=== PATIENT | male | born 1980 | race Caucasian/White ===

== ENCOUNTER → 2024-09-10 14:39 | Outpatient (BNVA) | payer BC, SELFPAY | PROVIDERS: PCP Family Medicine; Visit Provider Urology | DX: Z30.2 Encounter for sterilization (principal); F41.8 Other specified anxiety disorders | CPT/HCPCS: 55250; J2003 ==

== ENCOUNTER → 2024-09-14 10:55 | Outpatient (BNVA) | payer BC, SELFPAY | PROVIDERS: PCP Family Medicine; Visit Provider Urology ==

== ENCOUNTER 2024-09-15 15:02 | Day surgery (SDC) | payer BC, SELFPAY ==
[2024-09-15] VITALS (9 sets, daily range): BP systolic 153–175; BP diastolic 91–102; PULSE 75–85; RESP 15–18; TEMP 36.4–36.7; O2SAT 97–100; BMI 31.6
--- OUTSIDE RECORDS SUMMARY | 2024-09-15 10:13 | XMS_ITS | Clinical Summary ---
Author Organization 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 Name Role Phone Unavailable Primary Care Provider Unavailabl e Allergies No known active allergies Social History Tobacco Use Types Packs/Day Years Used Date Smoking Tobacco: Never Assessed Sex and Gender Information Value Date Recorded Sex Assigned at Not on file Gender Identity Not on file Sexual Orientation Not on file Last Filed Vital Signs Vital Sign Reading Time Taken Comments Blood Pressure 139/92 08/10/2020 9:23 PM EST Pulse 122 08/10/2020 9:23 PM EST Temperature 35.8 ??C (96.5 ??F) 08/10/2020 8:07 PM ES T Respiratory Rate 16 08/10/2020 9:23 PM EST Oxygen Saturation 96% 08/10/2020 9:23 PM EST Inhaled Oxygen Concentration - - Weight - - Height - - Body Mass Index - - Plan of Treatment Health Maintenance Due Date Last Done Comments Hepatitis C Virus Screening 1981 HIV Screening 1994 DTaP/Tdap/Td Vaccines (1 - Tdap) 2000 Hepatitis B Vaccines (1 of 3 - 19+ 3-dose series) 2000 Influenza Vaccine 02/26/2024 COVID-19 Vaccine ( - 2023-2 5 season) 2024 HPV Vaccines Aged Out No longer eligi ble based on patient's age to complete this topic Pneumococcal Vaccine: Pediat michel (0-5 Years) and At-Risk Patients (6 to 49 Years) Aged Out No longer eligible b ased on patient's age to complete this topic Insurance Payer Benefit Plan / Group Subscriber ID Effective Dates Phone Address [facility] [id number] 2019-Present [facility] [place] [id number]
--- NOTE | 2024-09-15 16:20 | P.HPSUR_ITS ---
Pre-Procedural Eval Section A - 24 Hr Update-Section A only Date of Service: 09/15/24 The patient is an INPATIENT: No Changes since office visit: No Cold of Flu in the past 2 weeks, No New Medical Problems, No Changes in Medication and No Patient answered all questions The patient has been examined within 24 hours of the surgical procedure. The History & Physical has been completed within 30 days and I have reviewed it.: No Section B - Complete if H&P > 30 days Chief Complaint: Nontraumatic hematoma of soft tissue Details of Present Illness: significant bilateral hematoma after vasectomy. Here for scrotal exploration and drainage Relevant Family History (Specify if Yes): No Relevant Social History: None Present Medications: see Short Stay Collaborative assessment Medical History: No relevant PMH History of Previous Operations: No relevant previous surgery Allergies: Allergies Allergy/AdvReac Type Severity Reaction Status Date / Time No Known Allergies Allergy Verified 09/15/24 16:06 Review of Systems Sugical H&P ROS: Negative: Constitution, Cardiovascular, Respiratory, Neurological, Psychiatric, Hem-Onc, Allergic/Immunologic, Gastrointestinal, G enitourinary, Musculoskeletal, Integumentary, Endocrine and Eyes/Ears/Nose/Throat Exam Surgical H&P Exam: Normal: HEENT, Normal: Heart, Normal: Lungs, Normal: Extremities, Normal: Abdomen, Normal: Skin and Normal: Neurological Plan Diagnosis/Plan: Unchanged I have reviewed the history and physical and performed a pertinent physical examination on my patient. No changes have occurred unless specified. Time Spent With Patient Time: Total time managing care of this patient today ____ minutes.
--- NOTE | 2024-09-15 16:33 | HO.ANESPROP2 ---
HPI - Anesthesia Eval Consult details Narrative: for drainage scrotal hematoma PMFSH Active Problems Active Problems: All Active Problems Anxiety about health (Acute) Encounter for vasectomy counseling (Acute) Screening for prostate cancer (Acute) Adult general medical exam (Acute) Laboratory exam ordered as part of routine general medical examination (Acute) Elevated blood pressure reading (Acute) Family planning (Acute) Family History Family history of problems with anesthesia: No Surgical History Surgical History (Updated 09/15/24 @ 16:24 by Sho Nevarez RN) H/O vasectomy History of facial surgery History of Problems with Anesthesia: No Social History Social History Housing: House Are you a primary child care centre director to a significant other at home: No Do you presently have visiting nurse or other home services: No Patient Tobacco Use Status: Former Tobacco user Tobacco use type: Cigarette Years Smoked: 10 e-Cigarette/Vaping Use: Never Used Second Hand Smoke Exposure: No Use of substances other than those prescribed or required for medical reasons: No Have you been hit, kicked, punched, or otherwise hurt by someone within the past year? If so, by whom?: No Are you DNR?: No Advance Directives: No Advance Directives Information Provided: No Advance Directives on File: No Recently lost weight without trying: No How much weight loss: Not applicable Eating poorly because of decreased appetite: No Nutrition screen score: 0 Poor oral hygiene: Yes (missing teeth throughout) service: No Current occupational status: employed Current occupation: [employer] Current occupational exposures/hazards: Yes Cognitive needs: No Hearing needs: No Vision needs: No Meds Allergies Allergy/AdvReac Type Severity Reaction Status Date / Time No Known Allergies Allergy Verified 09/15/24 16:06 Active Medications: Current Medications Cefazolin Sodium/Dextrose (Ancef) 2 gm in 50 mls @ 100 mls/hr IV PREOP ONE Stop: 09/15/24 16:49 Exam Height,Weight and Vital Signs: Height 6 ft 1 in Weight 108.7 kg Last Vital Signs Temp 98.1 F 09/15/24 15:15 Pulse 78 09/15/24 15:15 Resp 16 09/15/24 15:15 BP 153/102 H 09/15/24 15:15 Pulse Ox 100 09/15/24 15:15 O2 Del Method Room Air 09/15/24 15:15 Airway Mallampati Class: II TM Dist: >3cm Neck ROM: Full Loose/Missing/Broken Teeth: No Heart: ok Lungs: ok Assessment and Plan Assessment Anesthesia Assessment: Anesthesia Plan Discussed and Chart Reviewed Final Anesthetic Review Family History of Problems with Anesthesia: No History of Problems with Anesthesia: No NPO: Yes ASA Class: II Final Preanesthetic Review: No Changes in Pt Med Stat, Meds/Allgs Chart Reviewed, Consent Obtained/Reviewed and Anes Risks/Benef Reviewed Patient Risk: Low Procedure Risk: Low Anesthetic Plan Anesthetic Plan: GA and Agree w/ Assess. and Plan Disposition: Standard PACU
[2024-09-15] MEDS: ceFAZolin Sodium/Dextrose,Iso 2 GM/50 ML PIGGYBACK IV (16:49)
[2024-09-15] MEDS: fentaNYL citrate/PF 100 MCG/2 ML VIAL 50 MCG IVPUSH ×2 (18:05→18:10)
--- NOTE | 2024-09-15 18:16 | W.PM.OPN ---
Operative Note Operative Note Date of Service: 09/15/24 Narrative: PreOperative Diagnosis: Left testicular hematoma Post Operative Diagnosis: Left testicular hematoma Procedure: Scrotal exploration with drainage of left testicular hematoma Surgeon: Dr Dioni Patiño Anesthesia: Genital Indications for procedure: Delayed bruising following vasectomy. Significant left hematoma within tunica vaginalis Procedure: After informed consent was verified the patient was brought to the operating room and placed in a supine position. Anesthesia was administered per protocol. The patient was prepped and draped in a sterile fashion. Safety pause time-out was performed. Antibiotics being given. Patient had been positioned in a supine position. He was prepped and draped in sterile fashion. Scrotum was markedly swollen on the left side. Right side was normal. Incision made in midline of scrotum. Dissection performed into left hemiscrotum. Dissection taken down to the level of the tunic. Tissue was edematous from inflammation. Sac opened and hematoma drained. Hematoma was of jelly like consistency. This was fully removed. Area was examined for bleeding. Edges were fulgurated. Decision was made to partially resect the tunica sac. This is to try to stop further accumulation. Edges were cauterized. These were oversewn with 3-0 Vicryl. Due to degree of swelling a decision was made to leave a drain. Small drain was placed through dependent incision in the scrotum. Scrotum was closed. Two layers were made with 3-0 Vicryl suture. Skin was reapproximated using interrupted 3-0 and 4-0 chromic sutures. Pathology: Drains: Linette
[2024-09-15] MEDS: oxyCODONE HCl Immed Release 5 MG TABLET PO (18:27)
== END 2024-09-15 18:55 | disposition home or self-care (01) ==
PROVIDERS: PCP Family Medicine; Visit Provider Urology
PROC: (CPT 55110; principal; 2024-09-15 16:50)
DX: N99.840 Postprocedural hematoma of a genitourinary system organ or structure following a genitourinary system procedure (principal); M79.81 Nontraumatic hematoma of soft tissue; Z98.52 Vasectomy status
CPT/HCPCS: 54700; 88302; J0690; J2003; J2704; J2795; J3010

== ENCOUNTER → 2024-09-15 15:02 | Outpatient (BNV) | payer BC, SELFPAY | PROVIDERS: PCP Family Medicine; Visit Provider Urology | DX: N99.820 Postprocedural hemorrhage of a genitourinary system organ or structure following a genitourinary system procedure (principal) | CPT/HCPCS: 55110 ==

== ENCOUNTER → 2024-09-17 12:47 | Outpatient (BNVA) | payer BC, SELFPAY | PROVIDERS: PCP Family Medicine; Visit Provider Urology ==

== ENCOUNTER 2024-12-07 14:48 | Outpatient (AMB) | payer BC, SELFPAY ==
--- NOTE | 2024-12-07 15:00 | A.OFFVIS_ITS ---
Intake Visit Reasons: Vasectomy Followup Intake Note: Patient is present for VASECTOMY F/U Urology Medication:NONE Antibiotic Allergy:NONE Blood Thinner:NONE Telecommunication Systems Designer Required: No Allergies No Known Allergies [No Known Allergies*] Allergy (Verified 12/07/24 15:02) HPI Comments Details: Constantino is a 44 year old male who is here for evaluation for vasectomy. He has a 3 month old son. Vasectomy procedure was discussed at length with the patient. He was informed that vasectomy is a safe, permanent, and effective form of control but there are risks involved. It may involve risk of hematoma, procedure failure which is rare, sperm granuloma which may cause mild pain, and congestion which may cause sense of pressure and generally resolves after several weeks. 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 Postop vasectomy 1-2 sperm seen on high-power evaluation Satisfied technical criteria for success Repeat in 4 weeks just to ensure clear Sperm were not moving although sample had been done within 1 hour [facility] Surgical History (Updated 10/01/24 @ 12:37 by Carin Acuna) H/O vasectomy History of facial surgery Social History (System 10/01/24 @ 12:37 by Carin Acuna) Housing: House Are you a primary rn wound care to a significant other at home: No Do you presently have visiting nurse or other home services: No Patient Tobacco Use Status: Former Tobacco user Tobacco use type: Cigarette Years Smoked: 10 e-Cigarette/Vaping Use: Never Used Second Hand Smoke Exposure: No service: No Current occupational status: employed Current occupation: [employer] Current occupational exposures/hazards: Yes Cognitive needs: No Hearing needs: No Vision needs: No Review of Systems Const Denies chills and Denies fever(s) Card Reports no additional complaints and Denies syncope Resp Denies cough GI Denies abdominal pain and Denies heartburn Reports as per HPI and Denies change in libido Neuro Denies syncope Psych Denies change in libido Endo Denies change in libido Physical Exam Const General: cooperative, healthy appearing, comfortable and no acute distress Orientation/consciousness: patient oriented x3 HEENT Face and sinus: Yes normal facial exam Mouth: moist mucous membranes Neck Neck: Yes normal visual inspection, Yes full ROM and Yes trachea midline Chest Chest palpation & inspection: normal inspection of the chest Resp Effort & Inspection: normal respiratory effort, able to speak in complete sentences and no respiratory distress GI Inspection: Yes normal to inspection Back/Spine/Pelvis Cervical Spine: normal cervical lordosis Thoracic/Lumbar Spine: thoracic and lumbar spine normal to inspection Skin General skin exam: no rashes or lesions noted Neuro General: patient oriented x3, gait normal, tone normal and moves all extremities Extrem General: Yes normal to inspection and Yes capillary refill normal Assessment & Plan Assessment & Plan (1) Anxiety about health: Code(s): R45.89 - Other symptoms and signs involving emotional state Category: Medical Plan Recheck semen sample 4 weeks Patient Instructions: This note is constructed using voice recognition software. While every effort has been made to ensure accuracy superintendent meter tests errors may have been included. Imaging studies, laboratory and physical exam results were discussed and reviewed in detail. No major barriers to patient understanding were identified. An opportunity to ask questions regarding the treatment plan was provided. All questions were answered. The patient expressed understanding and agreement with the above treatment plan. The patient is aware they should contact our office by phone for worsening of their current condition or the appearance of new urologic symptoms. Compliance is encouraged with any medications and followup testing that is ordered. It is a privilege to participate in the urologic care of your patient. If you have any questions or concerns regarding treatment for the above conditions, or other urologic issues, please do not hesitate to contact me. The office telephone contact is [phone]. Sincerely, Dr Dioni Patiño MD, [facility] - Urology Compassionate Specialist Care for the Genitourinary System Coding Level of Care Code Est Pt Level 3 (91296) Diagnoses Anxiety about health R45.89
--- OUTSIDE RECORDS SUMMARY | 2024-12-07 15:54 | XMS_ITS | Clinical Summary ---
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 Name Role Phone Unavailable Primary Care Provider Unavailabl e Allergies No known active allergies Social History Tobacco Use Types Packs/Day Years Used Date Smoking Tobacco: Never Assessed Sex and Gender Information Value Date Recorded Sex Assigned at Not on file Legal Sex Male 6:04 PM EST Gender Identity Not on file Sexual Orientation [...] of 3 - 19+ 3-dose series) 2000 COVID-19 Vaccine (2023-2 5 season) 2024 Influenza Vaccine 02/25/2025 HPV Vaccines Aged Out No longer eligi ble based on patient's age to complete this topic Pneumococcal Vaccine: Pediat michel (0-5 Years) and At-Risk Patients (6 to 49 Years) Aged Out No longer eligible b ased on patient's age to complete this topic Insurance [facility]
== END 2024-12-07 16:06 | disposition home or self-care (01) ==
LOC: HO.HUSH 14:49
PROVIDERS: PCP Family Medicine; Visit Provider Urology
DX: R45.89 Other symptoms and signs involving emotional state (principal)
CPT/HCPCS: 99024